=== PATIENT | female | born 1990 | race Caucasian/White ===

== ENCOUNTER 2019-03-05 14:18 | Emergency (ER) | payer OTHER ==
[~2019-03-05] VITALS: Ht 157.5 cm; Wt 66.2 kg
[2019-03-05] MEDS ORDERED: ALDACTONE25 MG (14:42)
[2019-03-05] MEDS ORDERED: LOMAIRA8 MG (14:42)
[2019-03-05] MEDS ORDERED: ORTHO TRI CYCLEN (14:43)
== END 2019-03-05 15:38 | disposition home or self-care (01) ==
LOC: ER 14:18
DX: R51 Headache (principal); F06.4 Anxiety disorder due to known physiological condition